=== PATIENT | male | born 1960 | race African-American/Black ===

== ENCOUNTER 2023-11-04 11:54 | Emergency (ER) | payer OTHER ==
[2023-11-04 12:16] VITALS: TEMP 97.5
--- NOTE | 2023-11-04 12:22 | ED ---
General Adult HPI - General Chief complaint: Urogenital Stated complaint: Priapism Time Seen by Provider: 11/04/23 11:57 Source: patient, EMS, RN notes reviewed Mode of arrival: EMS Limitations: no limitations - History of Present Illness Initial comments: Patient is a 63-year-old male presenting to the emergency department with concern for erection lasting longer than 4 hours. Patient states he woke with this at 7 AM. Patient has had discomfort that is now becoming severe. Patient is at [facility] for crack cocaine use. Last crack cocaine use was 2 weeks ago. Patient was started on trazodone few days ago. Patient does have history of similar episode once years ago when he was also on trazodone however that resolved spontaneously. - Related Data Allergies Allergy/AdvReac Type Severity Reaction Status Date / Time No Known Allergies Allergy Verified 11/04/23 12:02 Review of Systems ROS Statement: Those systems with pertinent positive or pertinent negative responses have been documented in the HPI. ROS Other: All systems not noted in ROS Statement are negative. Constitutional: Denies: fever Eyes: Denies: eye pain ENT: Denies: ear pain Respiratory: Denies: cough Cardiovascular: Denies: chest pain Genitourinary: Reports: as per HPI Past Medical History Past Medical History: No Reported History History of Any Multi-Drug Resistant Organisms: None Reported Additional Past Surgical History / Comment(s): Right patella broken and repaired Past Psychological History: Bipolar, PTSD Smoking Status: Former smoker Past Alcohol Use History: Occasional Past Drug Use History: Cocaine General Exam Limitations: no limitations General appearance: alert, in no apparent distress Head exam: Present: normocephalic Eye exam: Present: normal appearance Neck exam: Present: normal inspection Cardiovascular Exam: Present: regular rate, normal rhythm GI/Abdominal exam: Present: soft. Absent: tenderness exam: Present: other (erect penis) Extremities exam: Present: normal inspection Neurological exam: Present: alert Psychiatric exam: Present: normal affect, normal mood Skin exam: Present: normal color Course Vital Signs 11/04/23 11:56 Temperature 97.5 F L Pulse Rate 66 Respiratory 22 Rate Blood Pressure 137/88 O2 Sat by Pulse 100 Oximetry Procedures - Penile Procedure Consent Obtained: verbal consent Indication: priapism management Sedation/Analgesia: opioids Priapism Management: phenylephrine injection Complications: none Patient Tolerated Procedure: well, no complications Additional Comments: 100 mcg each side of corpus cavernosum with detumescence successful Medical Decision Making - Medical Decision Making Was pt. sent in by a medical professional or institution ([facility], [facility], urgent care, hospital, or halfway...) When possible be specific @ -Patient was sent from [facility] Did you speak to anyone other than the patient for history (EMS, parent, family, police, friend...)? What history was obtained from this source @ -No Did you review nursing and triage notes (agree or disagree)? Why? @ -I reviewed and agree with nursing and triage notes Were old charts reviewed (outside hosp., previous admission, EMS record, old EKG, old radiological studies, urgent care reports/EKG's, halfway records)? Report findings @ -No old charts were reviewed Differential Diagnosis (chest pain, altered mental status, abdominal pain women, abdominal pain men, vaginal bleeding, weakness, fever, dyspnea, syncope, headache, dizziness, GI bleed, back pain, seizure, CVA, palpatations, mental health, musculoskeletal)? @ -Differential Abdominal Pain Men: Appendicitis, cholecystitis, diverticulosis, ischemic bowel, pancreatitis, hepatitis, UTI, gastroenteritis, AAA, incarcerated hernia, bowel obstruction, constipation, inflammatory bowel, hepatitis, peptic ulcer disease, splenic infarction, perforated viscus, testicular torsion, this is not meant to be an all-inclusive list EKG interpreted by me (3pts min.). @ -As above X-rays interpreted by me (1pt min.). @ -None done CT interpreted by me (1pt min.). @ -None done U/S interpreted by me (1pt. min.). @ -None done What testing was considered but not performed or refused? (CT, X-rays, U/S, labs)? Why? @ -None What meds were considered but not given or refused? Why? @ -I did consider terbutaline however patient has history of cocaine use Did you discuss the management of the patient with other professionals (professionals i.e. [facility], [facility] [employer], lab, RT, psych nurse, social psychologist, party plan sales director, teacher, bank secrecy act officer, major case detective)? Give summary @ -No Was smoking cessation discussed for >3mins.? @ -No Was critical care preformed (if so, how long)? @ -No Were there social determinants of health that impacted care today? How? (Homelessness, low income, unemployed, alcoholism, drug addiction, transportation, low edu. Level, literacy, decrease access to med. care, m[facility], rehab)? @ -No Was there de-escalation of care discussed even if they declined (Discuss DNR or withdrawal of care, Hospice)? DNR status @ -No What co-morbidities impacted this encounter? (DM, HTN, Smoking, COPD, CAD, Cancer, CVA, ARF, Chemo, Hep., AIDS, mental health diagnosis, sleep apnea, morbid obesity)? @ -None Was patient admitted / discharged? Hospital course, mention meds given and route, prescriptions, significant lab abnormalities, going to OR and other pertinent info. @ -Patient had successful phenylephrine injection with detumescence. Patient will be discharged and advised to avoid trazodone. Also advised to avoid cocaine Undiagnosed new problem with uncertain prognosis? @ -No Drug Therapy requiring intensive monitoring for toxicity (Heparin, Nitro, Insulin, Cardizem)? @ -No Were any procedures done? @ -See above Diagnosis/symptom? @ -Priapism Acute, or Chronic, or Acute on Chronic? @ -Acute Uncomplicated (without systemic symptoms) or Complicated (systemic symptoms)? @ -Default Side effects of treatment? @ -No Exacerbation, Progression, or Severe Exacerbation? @ -No Poses a threat to life or bodily function? How? (Chest pain, [place], [place], pneumonia, PE, COPD, DKA, ARF, appy, cholecystitis, CVA, Diverticulitis, Homicidal, Suicidal, threat to staff... and all critical care pts) @ -No Disposition Clinical Impression: Priapism Disposition: HOME SELF-CARE Condition: Stable Instructions (If sedation given, give patient instructions): Priapism (ED) Additional Instructions: Discontinue all cocaine and trazodone use. Avoid sexual intercourse for the next couple of weeks. Please do follow-up with primary care physician in the next couple of days for recheck. Return for erection lasting longer than 4 hours, abdominal pain, worsening symptoms or other concerns. Is patient prescribed a controlled substance at d/c from ED?: No Referrals: Angel Solares MD [STAFF PHYSICIAN] - 1-2 days Time of Disposition: 13:26
[2023-11-04] MEDS: HYDROmorphone 1 MG/ML 1 ML SYRINGE IM STA (12:25)
[2023-11-04] MEDS: PHENYLEPHRINE 1 MG, SODIUM CHLORIDE 0.9% (PF) VIAL 9.9 ML INTRA-CAVE PRN (13:15)
[2023-11-04 13:47] VITALS: BP 137/78; PULSE 63; RESP 20
== END 2023-11-04 13:47 | disposition home or self-care (01) ==
LOC: EC 11:54
DX: N48.30 Priapism, unspecified (principal); F14.90 Cocaine use, unspecified, uncomplicated; Z86.59 Personal history of other mental and behavioral disorders; Z87.891 Personal history of nicotine dependence
CPT/HCPCS: 99283; 96372; J1170; J2371